=== PATIENT | male | born 1975 | race Caucasian/White ===

== ENCOUNTER 2018-07-18 11:50 | Outpatient (CLI) | payer BC, SELFPAY ==
[2018-07-18 13:14] LABS: Abs Immature Grans 0.01 k/cumm (0.0-0.09); Absolute Basophil Count 0.03 k/cumm (0.0-0.2); Absolute Monocyte Count 0.71 k/cumm (0.11-0.7); Absolute Neutrophil Count 5.58 k/cumm (1.2-6.7); Basophils % 0.4; Eosinophils % 1.2; HCT 40.8 % (40.0-50.0); Immature Grans % 0.1; Lymphocytes % 24.6; Mean Corp. HGB Concentration 34.3 g/dL (32.0-36.0); Mean Corpuscular Hemoglobin 31.5 pg (27.0-33.0); Mean Corpuscular Volume 91.9 fL (80-95); Monocytes % 8.3; Neutrophils % 65.4; Platelet Count 296 x1000/uL (130-400); RBC 4.44 m/cumm (4.50-6.00); White Blood Cell Count 8.53 k/cumm (4.4-10.8)
[2018-07-18 13:29] LABS: ALT 46 U/L (12-78); AST 55 U/L (15-37); Albumin 4.3 g/dL (3.4-5.0); Alkaline Phosphatase 56 U/L (46-116); Anion Gap 9.9 mmol/L (3-11); BUN 13 mg/dL (7-18); Bilirubin, Total 0.7 mg/dL (0.2-1.0); CO2 28.1 mmol/L (21.0-32.0); CREATININE 0.79 mg/dL (0.70-1.30); Calcium 8.9 mg/dL (8.5-10.1); Chloride 100 mmol/L (98-107); Glucose 133 mg/dL (70-100); Sodium 138 mmol/L (136-145); Total Protein 6.7 g/dL (6.4-8.2)
== END 2018-07-18 12:10 ==
PROVIDERS: PCP Emergency Medicine; Visit Provider Internal Medicine
DX: R45.1 Restlessness and agitation (principal); F30.10 Manic episode without psychotic symptoms, unspecified; F69 Unspecified disorder of adult personality and behavior; F41.9 Anxiety disorder, unspecified; Z13.89 Encounter for screening for other disorder
CPT/HCPCS: 36415; 80053; 84443; 85025

== ENCOUNTER 2018-07-18 13:15 | Outpatient (REF) | payer BC, SELFPAY ==
[2018-07-18 14:18] LABS: *AMPHETAMINES SCREEN URINE Negative (Negative); *BARBITURATES SCREEN URINE Negative (Negative); *BENZODIAZEPINES SCREEN URINE Negative (Negative); Cannabinoids THC POSITIVE (Negative); Cocaine Screen,Urine Negative (Negative); METHADONE URINE SCREEN Negative (Negative); OPIATES URINE SCREEN Negative (Negative)
[2018-07-18 14:21] LABS: Tricyclic Antidepressants Negative (Negative)
[2018-07-25 04:04] LABS: Phencyclidine Negative ng/mL (Cutoff: 10); Phencyclidine Interpretation Negative.
== END 2018-07-18 13:35 ==
LOC: LBN 13:15
PROVIDERS: PCP Emergency Medicine; Visit Provider Internal Medicine
DX: F69 Unspecified disorder of adult personality and behavior (principal); Z79.899 Other long term (current) drug therapy
CPT/HCPCS: 80307; 83992

== ENCOUNTER 2022-09-12 18:20 | Emergency (ER) | payer SELFPAY ==
[2022-09-12 19:05] VITALS: BP 135/74; PULSE 96; RESP 16; TEMP 37.1; O2SAT 95
[2022-09-12 19:55] LABS: Bilirubin Negative (Negative); Blood Negative (Negative); Clarity Clear (Clear); Glucose Negative (Negative); Ketones Trace mg/dL (Negative); Leukocyte Esterase Negative (Negative); Nitrite Negative (Negative); Specific Gravity >= 1.030 (1.005-1.025); Urobilinogen 0.2 EU/dL (Up TO 0.2); pH 5.5 (5-8)
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
[2022-09-12 20:05] LABS: *AMPHETAMINES SCREEN URINE Negative (Negative); *BARBITURATES SCREEN URINE Negative (Negative); *BENZODIAZEPINES SCREEN URINE Negative (Negative); Cannabinoids THC Negative (Negative); Cocaine Screen,Urine Negative (Negative); METHADONE URINE SCREEN Negative (Negative); OPIATES URINE SCREEN Negative (Negative); Tricyclic Antidepressants Negative (Negative)
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
[2022-09-12 20:36] LABS: Abs Immature Grans 0.02 10^3/uL (0.0-0.06); Absolute Basophil Count 0.04 10^3/uL (0.0-0.2); Absolute Eosinophil Count 0.02 10^3/uL (0.0-0.7); Absolute Lymphocyte Count 1.72 10^3/uL (1.2-3.4); Absolute Monocyte Count 0.62 10^3/uL (0.1-0.8); Absolute Neutrophil Count 7.17 10^3/uL (1.2-6.7); Basophils % 0.4; Eosinophils % 0.2; HCT 42.5 % (40.0-50.0); HGB 14.6 g/dL (13.5-17.5); Immature Grans % 0.2; Lymphocytes % 17.9; MCH 31.3 pg (27.0-33.0); MCHC 34.4 % (32.0-36.0); MCV 91 fL (80-95); MPV 8.5 fL (8.0-11.0); Monocytes % 6.5; Neutrophils % 74.8; Platelet Count 261 10^3/uL (130-400); RBC 4.66 10^6/uL (4.36-5.78); RDW 11.7 % (11.8-14.1); RDW-SD 39.4 fL; WBC 9.59 10^3/uL (4.4-10.8)
[2022-09-12 20:54] LABS: Salicylate < 2.8 mg/dL (<2.8)
[2022-09-12 20:56] LABS: ALT 16 U/L (16-63); AST 16 U/L (15-37); Acetaminophen < 2 ug/mL (10-30); Albumin 4.4 g/dL (3.4-5.0); Alkaline Phosphatase 72 U/L (46-116); Anion Gap 7.9 mmol/L (3-11); BUN 14 mg/dL (7-18); Bilirubin, Total 0.6 mg/dL (0.2-1.0); CO2 28.1 mmol/L (21.0-32.0); CREATININE 0.8 mg/dL (0.70-1.30); Calcium 9.3 mg/dL (8.5-10.1); Chloride 103 mmol/L (98-107); Estimated GFR 110.53 (mL/min/1.73m2); Glucose 128 mg/dL (74-106); Potassium 3.9 mmol/L (3.5-5.1); Sodium 139 mmol/L (136-145); TSH (W/Ref FT4) 0.82 uIU/mL (0.36-3.74); Total Protein 7.3 g/dL (6.4-8.2)
--- NOTE | 2022-09-12 21:58 | NUR.NOTE ---
Nursing Note: offered pt food/drink, accepted popsicle; pt refused any medications at this time.
--- NOTE | 2022-09-13 02:11 | NUR.NOTE ---
Nursing Note: Pt up out of bed angry that he is being held here against his will. Explained to patient that he was there on a hold that the measurement coordinator signed. Called mental health counselor and she said that if he became aggressive and wanted to leave, to let him go. Dr. Oseguera spoke with pt and calmed him down for now. Both myself and Dr. Oseguera offered medications for anxiety and pt refused both times.
--- NOTE | 2022-09-13 03:53 | NUR.NOTE ---
Nursing Note: Spoke with Gibran from [facility] to give him an update
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
[2022-09-13 11:37] VITALS: BP 106/63; PULSE 58; RESP 18; TEMP 36.7; O2SAT 98
--- NOTE | 2022-09-13 17:35 | NUR.NOTE ---
Nursing Note: State psychiatrist on Ipad for re-cert., pt very brief, did not want to speak with him, provider aware, re-cert is in place per psychiatry.
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
[2022-09-13] MEDS: Haloperidol 5 MG TAB (21:48)
[2022-09-13] MEDS: diphenhydrAMINE 25 MG CAP (21:49)
[2022-09-13] MEDS: LORazepam 1 MG TAB (21:49)
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
[2022-09-13] MEDS: OLANZapine 10 MG TAB (21:56)
--- NOTE | 2022-09-13 22:34 | NUR.NOTE ---
Nursing Note: 2128 - [facility] called for assistance 2129 - Pt became aggressive with Dr. Oseguera 2134 - [facility] arrived 2139 - Pt agrred to take meds PO
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
--- NOTE | 2022-09-14 09:18 | W.EDPROG ---
Date of service: 09/14/22 Time of Service: 09:18 Medical Decision Making pt reportedly agitated overnight so was given oral medications, currently calm and cooperative, no acute complaints, will continue to monitor until psych placement is found Sign Out Sign Out Data: Sign Out Comment: Patient pending psychiatric bed placement. Patient is here involuntarily and does have warrant signs. Last updated by Micah Salazar NP at 09/12/22 23:26 Sign Out Comment: Patient stable throughout the night, pending psychiatric bed placement, patient here involuntarily. Last updated by Guero Oseguera DO at 09/13/22 08:39 Sign Out Comment: Patient notably escalated during the night. He made multiple verbal threats against myself and staff. Patient chose to voluntarily take oral Haldol, Ativan, and Zyprexa last night. He remains here involuntarily. Last updated by Guero Oseguera DO at 09/14/22 06:22 Discharge Plan Disposition Condition: Serious Discharge Details Chief Complaint: PsychEval Clinical Impression: Manic behavior, Psychosis Primary Care Provider: Bashir Do ED Provider: Gibran Staton Home Meds and New Rx's Prescriptions: No Action No Known Home Meds
--- NOTE | 2022-09-14 10:56 | NUR.NOTE ---
mental health came in to speak with patient and patient became upset because he was being kept involuntarily. requested medical records, advised melinda sprague, of patient's request. melinda to speak with care management. able to talk patient down after he became upset with mental health. asked patient if he wanted some oral medication for anxiety/comfort and he declined at this time.
--- NOTE | 2022-09-14 12:00 | DI.CT_ITS ---
Exam(s) CT HEAD WO EXAM: CT HEAD WO CLINICAL HISTORY: altered mental status. TECHNIQUE: Imaging Protocol: Axial computed tomography images with coronal and sagittal reformatted images were created and reviewed COMPARISON: No exams were available for comparison FINDINGS: Ventricles and Extra axial spaces: Normal in size and morphology for the patient's age. Hemorrhage: None. Cerebral parenchyma: Normal. Midline shift: None. Brainstem/Cerebellum: Normal. Calvarium: Normal. Visualized Paranasal sinuses/Mastoids: Clear. Soft Tissues: Unremarkable. IMPRESSION: No acute intracranial process. RADIATION DOSE DELIVERED: 890.68mGy.cm Total DLP DATA REPOSITORY: All CT scans at this facility are submitted to the National Radiology Data Registry (NRDR) Dose Index Registry (DIR) with the [employer] (ACR). RADIATION OPTIMIZATION: All CT scans at this facility use at least one of these dose optimization te chniques: automated exposure control; mA and/or kV adjustment per patient size (includes targeted exa ms where dose is matched to clinical indication); or iterative reconstruction.
--- NOTE | 2022-09-14 12:33 | NUR.NOTE ---
Report received from Liza ROPER @1000. Melanie ROPER as sitter at bedside. Pt resting in bed quietly. Will cont to monitor.
--- NOTE | 2022-09-14 13:33 | NUR.NOTE ---
patient had an uneventful cat scan of his head. behaved appropriately the entire time.
--- NOTE | 2022-09-14 14:34 | W.EDPROG ---
Date of service: 09/14/22 Time of Service: 14:35 Medical Decision Making provider at [facility] requested head ct before consideration for transfer, this was done without complications and the head ct was negative per radiology Imaging Data Radiologic Study: Attestation: I personally reviewed and interpreted this imaging study as follows: Imaging: CT Scan Radiologist's impression: no acute findings Lab Data Lab results reviewed: Yes I reviewed the patient's lab results. Sign Out Sign Out Data: Sign Out Comment: Patient pending psychiatric bed placement. Patient is here involuntarily and does have warrant signs. Last updated by Micah Salazar NP at 09/12/22 23:26 Sign Out Comment: Patient stable throughout the night, pending psychiatric bed placement, patient here involuntarily. Last updated by Guero Oseguera DO at 09/13/22 08:39 Sign Out Comment: Patient notably escalated during the night. He made multiple verbal threats against myself and staff. Patient chose to voluntarily take oral Haldol, Ativan, and Zyprexa last night. He remains here involuntarily. Last updated by Guero Oseguera DO at 09/14/22 06:22 Sign Out Comment: one episode where he became agitated but verbaly deescalated, EE Last updated by Gibran Staton MD at 09/14/22 11:37 Discharge Plan Disposition Condition: Serious Discharge Details Chief Complaint: PsychEval Clinical Impression: Manic behavior, Psychosis Primary Care Provider: Bashir Do ED Provider: Gibran Staton Home Meds and New Rx's Prescriptions: No Action No Known Home Meds
--- NOTE | 2022-09-14 21:58 | NUR.NOTE ---
Report given to Yuki ROPER. Nursing Note:
--- NOTE | 2022-09-15 10:03 | NUR.NOTE ---
Report received from Angie ROPER. Care assumed at this time. Nursing Note:
--- NOTE | 2022-09-15 11:30 | NUR.NOTE ---
Pt sitting up in bed. Sitter at bedside. Pt offered Zyprexa at this time and declined. Nursing Note:
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
--- NOTE | 2022-09-15 13:57 | ED.PROG_ITS ---
Date of service: 09/15/22 Time of Service: 08:00 Medical Decision Making 0800 --please see previous providers note for initial presentation, exam, plan and course. Case endorsed to continue to monitor while awaiting placement. [id number] --patient accepted to [facility]. Accepting provider [employer] Lia Walton. Medical Records Medical records reviewed: Yes I reviewed the patient's medical records. Sign Out Sign Out Data: Sign Out Comment: Patient pending psychiatric bed placement. Patient is here involuntarily and does have warrant signs. Last updated by Micah Salazar NP at 09/12/22 23:26 Sign Out Comment: Patient stable throughout the night, pending psychiatric bed placement, patient here involuntarily. Last updated by Guero Oseguera DO at 09/13/22 08:39 Sign Out Comment: Patient notably escalated during the night. He made multiple verbal threats against myself and staff. Patient chose to voluntarily take oral Haldol, Ativan, and Zyprexa last night. He remains here involuntarily. Last updated by Guero Oseguera DO at 09/14/22 06:22 Sign Out Comment: one episode where he became agitated but verbaly deescalated, EE Last updated by Gibran Staton MD at 09/14/22 11:37 Sign Out Comment: EE, awaiting placement; cooperative during day shift Last updated by Jose Dixon MD at 09/14/22 23:54 Discharge Plan Disposition Patient Disposition: Psychiatric Hospital/Unit Specific Psychiatric Facility: [facility] Condition: Serious Discharge Details Chief Complaint: PsychEval Clinical Impression: Manic behavior, Psychosis Primary Care Provider: Bashir Do ED Provider: Flavia Alcantara Home Meds and New Rx's Prescriptions: No Action No Known Home Meds
--- NOTE | 2022-09-15 15:18 | NUR.NOTE ---
Report given to Sharmaine ROPER at [facility] at this time. Nursing Note:
[2022-09-15 15:22] VITALS: BP 130/57; PULSE 71; RESP 16; O2SAT 94
== END 2022-09-15 16:49 ==
PROVIDERS: Nurse Practitioner Family; Emergency Provider Physician Assistant; PCP Nurse Practitioner Family
DX: F30.2 Manic episode, severe with psychotic symptoms (principal)
CPT/HCPCS: 80053; 80307; 96372; 99285; 70450; 80320; 80329; 81003; 84443; 85025; 99284